=== PATIENT | male | born 1940 | race Caucasian/White ===

== ENCOUNTER → 2021-02-16 14:16 | Outpatient (CLI) | payer MEDICARE, OTHER, SELFPAY ==
--- NOTE | 2021-02-16 14:23 | DI.RAD.S_ITS ---
PROCEDURE: XR KNEE LT 1TO2V INDICATIONS: PAIN/SWELLING TECHNIQUE: 3. views of the knee were acquired. COMPARISON: None. FINDINGS: Bones: No fractures or dislocations. No suspicious bony lesions. Severe left knee tricompartmental osteoarthritis. Soft tissues: Moderate-sized nonspecific joint effusion. Multiple calcifications project over the joint space which may lie present intra-articular loose ossifications. No suspicious soft tissue calcifications. IMPRESSION: Severe tricompartment osteoarthritis. Moderate-sized nonspecific joint effusion. Dictated by: Kadie Boateng MD, PhD on 02/16/2021 at 16:58 Approved by: Kadie Boateng MD, PhD on 02/16/2021 at 16:59
== END ==
PROVIDERS: PCP Physician Assistant; Referring Provider Physician Assistant; Visit Provider Physician Assistant
DX: M25.562 Pain in left knee (principal); M17.12 Unilateral primary osteoarthritis, left knee; R29.6 Repeated falls; M25.462 Effusion, left knee
CPT/HCPCS: 73560